=== PATIENT | female | born 1985 | race African-American/Black ===

== ENCOUNTER 2023-09-12 10:15 | Inpatient (IN) | payer OTHER ==
[2023-09-12 11:28] VITALS: BMI 37.0
[2023-09-12] MEDS ORDERED: CITRIC ACID/SODIUM CITRATE 30 ML UNIT-DOSE CUP PO ONE (13:36)
[2023-09-12] MEDS ORDERED: SUCCINYLCHOLINE CHLORIDE 200 MG/10 ML SYRINGE ONE (13:40)
[2023-09-12] MEDS ORDERED: morphine SULFATE/PF 1 MG/2 ML (2cc Syringe - QUVA) ONE (13:40)
[2023-09-12] MEDS ORDERED: PROPOFOL 40 ML ONE (13:41)
[2023-09-12] MEDS ORDERED: ELECTROLYTE-148 SOLN 1,000 ML IV SCH (13:45)
[2023-09-12] MEDS ORDERED: SODIUM CHLORIDE 0.9% P/F 10 ML VIAL IJ ONE (13:54)
[2023-09-12] MEDS ORDERED: ONDANSETRON 4 MG/2 ML VIAL ONE (13:56)
[2023-09-12] MEDS ORDERED: ceFAZolin SODIUM 1 GM VIAL ONE (13:56)
[2023-09-12] MEDS ORDERED: ePHEDrine SULFATE 50 MG/1 ML AMPULE ONE (13:58)
[2023-09-12] MEDS ORDERED: OXYTOCIN 10 UNITS/ML VIAL ONE ×3 (14:01→14:30)
[2023-09-12] MEDS ORDERED: DEXAMETHASONE SOD PHOSPHATE 4 MG/1 ML VIAL ONE (14:26)
[2023-09-12] MEDS ORDERED: KETOROLAC TROMETHAMINE 30 MG/1 ML VIAL ONE (14:47)
[2023-09-12] MEDS ORDERED: FENTANYL CITRATE/PF 50 MCG/ML VIAL ONE (14:52)
[2023-09-12] MEDS ORDERED: OXYTOCIN 20 UNITS in 0.9% NS 20 UNIT/1,000 ML INFUS.BAG IV ONE (15:05)
[2023-09-12] MEDS ORDERED: morphine SULFATE/PF 1 MG/2 ML (2cc Syringe - QUVA) EP ONE (15:08)
[2023-09-12] MEDS ORDERED: ONDANSETRON 4 MG/2 ML VIAL IVPUSH PRN (15:08)
[2023-09-12] MEDS: OXYTOCIN 20 UNITS in 0.9% NS 20 UNIT/1,000 ML INFUS.BAG IV SCH ×2 (15:15→23:09)
[2023-09-12] MEDS ORDERED: METHYLERGONOVINE MALEATE 0.2 MG/1 ML AMP IM PRN (15:43)
[2023-09-12] MEDS ORDERED: IBUPROFEN 800 MG/8 ML IJ IVPB PRN (15:43)
[2023-09-12] MEDS ORDERED: IBUPROFEN 600 MG TABLET (FP) PO PRN (15:43)
[2023-09-12] MEDS ORDERED: ACETAMINOPHEN 1000 MG/100 ML BAG IVPB PRN (15:45)
[2023-09-13] MEDS ORDERED: oxyCODONE HCL 5 MG TABLET PO PRN ×2 (03:43)
[2023-09-13] MEDS: SIMETHICONE 80 MG TAB.CHEW (FP) PO PRN ×4 (06:11→21:11)
[2023-09-13] MEDS: IBUPROFEN 600 MG TABLET (FP) PO PRN ×4 (06:11→21:12)
[2023-09-13 08:20] LABS: BASO % 0.3 % (0-2.0); EOS % 0.1 % (0-4.5); HEMATOCRIT 20.7 % (32.4-45.2); MCH 23.1 pg (25.7-33.7); MCHC 32.2 g/dl (32.0-36.0); MEAN CELL VOLUME 71.7 fl (80-96); MEAN PLT VOLUME 7.6 fl (7.5-11.1); MONO % 8.1 % (3.8-10.2); NEUT % 77.5 % (42.8-82.8); PLATELET COUNT 250 10^3/uL (134-434); RBC 2.88 M/mm3 (3.60-5.2); RDW 19.8 % (11.6-15.6); WHITE BLOOD COUNT 10.9 K/mm3 (4.0-10.0)
[2023-09-13 08:29] LABS: HEMOGLOBIN 6.7 GM/dL (10.7-15.3)
[2023-09-13] MEDS: FERROUS SO4 325 MG TABLET (FP) PO SCH ×2 (08:34→17:25)
[2023-09-13] MEDS: PRENATAL VITAMINS W/ FOLIC ACID TABLET (FP) PO SCH (09:41)
[2023-09-13] MEDS ORDERED: ACETAMINOPHEN 325 MG TABLET (FP) PO PRN (15:43)
[2023-09-13] MEDS ORDERED: BISACODYL 10 MG SUPP.RECT RC PRN (15:43)
[2023-09-13 21:10] VITALS: RESP 18
[2023-09-13] MEDS: SENNOSIDES/DOCUSATE COMBO (SENNA PLUS) TABLET (UD) PO PRN (21:12)
[2023-09-14] MEDS: SIMETHICONE 80 MG TAB.CHEW (FP) PO PRN ×4 (03:42→22:43)
[2023-09-14] MEDS: IBUPROFEN 600 MG TABLET (FP) PO PRN ×3 (03:43→17:22)
[2023-09-14] MEDS: FERROUS SO4 325 MG TABLET (FP) PO SCH ×2 (09:00→17:22)
[2023-09-14] MEDS: PRENATAL VITAMINS W/ FOLIC ACID TABLET (FP) PO SCH (10:01)
[2023-09-14] MEDS: ACETAMINOPHEN 325 MG TABLET (FP) PO PRN ×2 (12:00→22:44)
[2023-09-14] MEDS: SENNOSIDES/DOCUSATE COMBO (SENNA PLUS) TABLET (UD) PO PRN (22:43)
[2023-09-15] MEDS: IBUPROFEN 600 MG TABLET (FP) PO PRN (06:05)
[2023-09-15] MEDS: SIMETHICONE 80 MG TAB.CHEW (FP) PO PRN (06:05)
[2023-09-15] MEDS: FERROUS SO4 325 MG TABLET (FP) PO SCH (08:18)
[2023-09-15 09:58] VITALS: BP 119/68; PULSE 96; TEMP 98.2
[2023-09-15] MEDS: PRENATAL VITAMINS W/ FOLIC ACID TABLET (FP) PO SCH (11:38)
== END 2023-09-15 11:40 | disposition home or self-care (01) | DRG 788 ==
LOC: JLDR 10:15 → J3W 17:24
PROVIDERS: ADMIT Obstetrics & Gynecology; ATTEND Obstetrics & Gynecology
PROC: 10D00Z1 Extraction of Products of Conception, Low, Open Approach (ICD-10-PCS; principal; 2023-09-12)
DX: O34.211 Maternal care for low transverse scar from previous cesarean delivery (principal); N85.8 Other specified noninflammatory disorders of uterus; Z3A.39 39 weeks gestation of pregnancy; Z37.0 Single live birth
CPT/HCPCS: 36415; 85025; 88307-TC; 94010